=== PATIENT | male | born 1970 | race African-American/Black ===

== ENCOUNTER 2023-06-20 13:47 | Outpatient (CLI) | payer OTHER | END 2023-06-20 13:48 | disposition home or self-care (01) | LOC: BICRAD 13:47 | PROVIDERS: ATTEND Preventive Medicine Occupational Medicine | DX: Z02.71 Encounter for disability determination (principal); S69.92XA Unspecified injury of left wrist, hand and finger(s), initial encounter; M21.942 Unspecified acquired deformity of hand, left hand ==